=== PATIENT | male | born 1985 | race Caucasian/White ===

== ENCOUNTER 2020-11-25 12:50 | Emergency (ER) | payer OTHER ==
--- NOTE | 2020-11-25 13:35 | EDM.PDOC ---
ED HPI GENERAL MEDICAL PROBLEM - General Chief Complaint: General Stated Complaint: Loss of Taste and Smell Time Seen by Provider: 11/25/20 13:15 Source of Information: Reports: Patient History Limitations: Reports: No Limitations - History of Present Illness INITIAL COMMENTS - FREE TEXT/NARRATIVE: guillermina is a 35 year old male who presents today with concerns of having Covid. Rouse s noted increased sinus congestion and drainage over the last few days. Was on a [place] so figured it was his allergies acting up. Was driving back home today when noted he couldn't taste or smell his food. Denies chest congestion or cough. Unaware of any fevers. No ear pain or sore throat. No nausea/vomiting or diarrhea. Has had the Fara vaccine. Onset: Gradual Duration: Day(s):, Getting Worse Location: Reports: Head Severity: Mild Associated Symptoms: Denies: Confusion, Chest Pain, Cough, Fever/Chills, Headaches, Loss of Appetite, Malaise, Nausea/Vomiting, Seizure, Shortness of Breath - Related Data Allergies Allergy/AdvReac Type Severity Reaction Status Date / Time No Known Allergies Allergy Verified 11/25/20 12:51 Home Meds: Home Meds . [No Known Home Meds] 11/25/20 [History] Past Medical History - Past Health History Medical/Surgical History: Denies Medical/Surgical History Social & Family History - Family History Family Medical History: No Pertinent Family History - Tobacco Use Tobacco Use Status *Q: Never Tobacco User Second Hand Smoke Exposure: No - Caffeine Use Caffeine Use: Reports: None - Recreational Drug Use Recreational Drug Use: No ED ROS GENERAL - Review of Systems Review Of Systems: See Below Constitutional: Denies: Fever, Chills, Malaise, Weakness, Fatigue, Decreased Appetite HEENT: Reports: Rhinitis, Other. Denies: Ear Pain, Throat Pain, Vertigo (loss of taste and smell) Respiratory: Denies: Shortness of Breath, Cough Cardiovascular: Denies: Chest Pain, Edema, Lightheadedness Endocrine: Denies: Fatigue GI/Abdominal: Denies: Abdominal Pain, Constipation, Diarrhea, Nausea, Vomiting : Reports: No Symptoms Musculoskeletal: Reports: No Symptoms Skin: Reports: No Symptoms Neurological: Denies: Headache ED EXAM, GENERAL - Physical Exam Exam: See Below Exam Limited By: No Limitations General Appearance: Alert, WD/WN, No Apparent Distress Ears: Normal External Exam, Normal TMs Nose: Normal Inspection, Normal Mucosa, No Blood Throat/Mouth: Normal Inspection, Normal Oropharynx Head: Normocephalic Neck: Normal Inspection, Supple, Non-Tender Respiratory/Chest: No Respiratory Distress, Lungs Clear, Normal Breath Sounds Cardiovascular: Regular Rate, Rhythm GI/Abdominal: Normal Bowel Sounds, Soft, Non-Tender Extremities: Normal Inspection, No Pedal Edema Neurological: Alert, Oriented Skin Exam: Warm, Dry Course - Vital Signs Last Recorded V/S: Last Vital Signs Temp 97.8 F 11/25/20 12:56 Pulse 69 11/25/20 12:56 Resp 18 11/25/20 12:56 BP 137/62 11/25/20 12:56 Pulse Ox 98 11/25/20 12:56 - Orders/Labs/Meds Labs: Laboratory Tests 11/25/20 Range/Units 12:52 SARS CoV-2 RNA Rapid SONAL Positive H (NEGATIVE) - Re-Assessments/Exams Free Text/Narrative Re-Assessment/Exam: 11/25/20 1315 covid is positive. Discussed findings with patient. Quarantine guidelines with him and his family. Treatment plan. Departure - Departure Time of Disposition: 13:33 Disposition: Home, Self-Care 01 Condition: Good Clinical Impression: COVID-19 - Discharge Information *PRESCRIPTION DRUG MONITORING PROGRAM REVIEWED*: No *COPY OF PRESCRIPTION DRUG MONITORING REPORT IN PATIENT DIYA: No Instructions: What You Should Know About COVID-19 to Protect Yourself and Others - CDC, 10 Things You Can Do to Manage Your COVID-19 Symptoms at Home - CDC (09/01/2020), Symptoms of COVID-19 - [facility] (04/10/2020) Referrals: PCP,None [Primary Care Provider] - Forms: ED Department Discharge Additional Instructions: 1. Push fluids. 2. Tylenol or ibuprofen for fever or discomfort 3. Prone positioning (lie on stomach as much as possible) 4. Follow up if any concerns. Sepsis Event Note (ED) - Evaluation Sepsis Screening Result: No Definite Risk - Focused Exam Vital Signs: Vital Signs Temp Pulse Resp BP Pulse Ox 11/25/20 12:56 97.8 F 69 18 137/62 98
== END 2020-11-25 13:43 | disposition home or self-care (01) ==
LOC: CC.ED 12:50
DX: U07.1 COVID-19 (principal)
CPT/HCPCS: 99283; U0002